=== PATIENT | male | born 1945 | race Caucasian/White ===

== ENCOUNTER 2019-03-05 08:22 | Emergency (ER) | payer OTHER ==
[2019-03-05] MEDS ORDERED: HYDROCODONE/CHLORPHEN 5 ML/OSYR ONE (08:51)
[2019-03-05] MEDS ORDERED: ACETAMINOPHEN 500 MG TAB ONE (08:51)
[2019-03-05] MEDS ORDERED: NA CHLORIDE 0.9% 1,000 ML ONE (09:56)
[2019-03-05] MEDS ORDERED: CEFTRIAXONE/SWI 1gm 1 GM/10 ML SYR ONE (09:56)
[2019-03-05 10:22] LABS: Absolute Lymphocytes (CBC) 10.7 K/uL (0.7-4.9); Basophils % 0.4 % (0-1.3); Hematocrit 31.7 % (39.6-49.0); Lymphocytes % 86.9 % (15.3-44.8); MPV 7.1 fL (7.6-11.3)
[2019-03-05 10:35] LABS: Potassium 3.6 mmol/L (3.5-5.1)
--- NOTE | 2019-03-05 10:51 | RAD REPORT ---
EXAM DESCRIPTION: RAD - Chest Pa And Lat (2 Views) - 03/05/2019 9:26 am CLINICAL HISTORY: Cough;Fever Chest pain. COMPARISON: No comparisons FINDINGS: Emphysematous changes are present throughout the lungs. No focal infiltrate is seen. The h eart is normal in size. No displaced fractures. IMPRESSION: COPD.
--- NOTE | 2019-03-05 11:34 | ER ---
Nurse's Notes [facility] Name: Yao Francisco Age: 73 yrs Sex: Male : 1945 Arrival Date: 03/05/2019 Time: 08:28 Bed 19 Private MD: Diagnosis: Fever presenting with conditions classified elsewhere;Viral infection, unspecified Presentation: 03/05 08:43 Presenting complaint: Patient states: body aches and fever since Thursday, called out of em state doctor and prescribed amoxicillin for sore throat, also reports "little cough". Transition of care: patient was not received from another setting of care. Onset of symptoms was March 01, 2019. Risk Assessment: Do you want to hurt yourself or someone else? Patient reports no desire to harm self or others. Initial Sepsis Screen: Does the patient meet any 2 criteria? Temp <36.0*C (96.8*F)) or > 38.3*C (100.9*F). HR > 90 bpm. Yes Does the patient have a suspected source of infection? Yes: Productive cough/pneumonia. Care prior to arrival: None. 08:43 Method Of Arrival: Ambulatory em 08:50 Acuity: TOMAS 3 iw Historical: - Allergies: 08:48 Allopurinol; em - Home Meds: 08:48 Potassium Chloride Oral [Active]; omeprazole Oral [Active]; Simvastatin Oral [Active]; em meloxicam oral oral [Active]; losartan oral oral [Active]; - PMHx: 08:48 Kidney stones; Hyperlipidemia; Hypertension; Sleep Apnea; vitamin d deficiency; em 10:31 Chronic Lymphocytic Leukemia; em - Immunization history:: Adult Immunizations up to date. - Social history:: Smoking status: Patient/guardian denies using tobacco. - Ebola Screening: : Patient negative for fever greater than or equal to 101.5 degrees Fahrenheit, and additional compatible Ebola Virus Disease symptoms Patient denies exposure to infectious person Patient denies travel to an Ebola-affected area in the 21 days before illness onset No symptoms or risks identified at this time. Screenin:44 Abuse screen: Denies threats or abuse. Nutritional screening: No deficits noted. em Tuberculosis screening: No symptoms or risk factors identified. Fall Risk None identified. Assessment: 08:44 General: Appears in no apparent distress. uncomfortable, Behavior is calm, cooperative, em Reports chills for >3 days, feeling ill for 2-3 days. Pain: Complains of pain in "all over" Pain currently is 5 out of 10 on a pain scale. Pain began Thursday. Neuro: Level of Consciousness is awake, alert, obeys commands, Oriented to person, place, time, situation. Cardiovascular: Heart tones S1 S2 present Capillary refill < 3 seconds Patient's skin is warm and dry. Respiratory: Reports cough that is productive, Airway is patent Respiratory effort is even, unlabored, Respiratory pattern is regular, symmetrical, Breath sounds are clear bilaterally. GI: Abdomen is flat, Patient currently denies nausea, vomiting. EENT: Nares are clear Oral mucosa is moist. Throat is reddened has enlarged tonsils. Derm: Skin is intact, is healthy with good turgor, Skin is pink, warm \\T\\ dry. Musculoskeletal: Capillary refill < 3 seconds, Range of motion: intact in all extremities. 09:53 Reassessment: Patient appears in no apparent distress at this time. Patient and/or em family updated on plan of care and expected duration. Pain level reassessed. Patient is alert, oriented x 3, equal unlabored respirations, skin warm/dry/pink. Patient denies pain at this time. Patient states feeling better. Patient states symptoms have improved. 11:30 Reassessment: Patient appears in no apparent distress at this time. Patient and/or em family updated on plan of care and expected duration. Pain level reassessed. Patient is alert, oriented x 3, equal unlabored respirations, skin warm/dry/pink. Patient denies pain at this time. Patient states feeling better. Patient states symptoms have improved. Vital Signs: 08:48 BP 113 / 75; Pulse 95; Resp 22; Temp 102.9(O); Pulse Ox 95% on R/A; Weight 117.93 kg; em Height 5 ft. 9 in. (175.26 cm); Pain 5/10; 09:52 BP 108 / 66; Pulse 89; Resp 20; Temp 101.0(O); Pulse Ox 94% on R/A; Pain 0/10; em 11:30 BP 110 / 59; Pulse 74; Resp 18; Pulse Ox 99% on R/A; Pain 0/10; em 11:34 Temp 99.4(O); em 08:48 Body Mass Index 38.39 (117.93 kg, 175.26 cm) em ED Course: 08:28 Patient arrived in ED. mr 08:30 Sonido AppiahSANDRINE wyatt is Primary Nurse. em 08:32 Hayley Milian FNP-C is PHCP. snw 08:32 Frank Ruiz MD is Attending Physician. snw 08:44 Patient has correct armband on for positive identification. Placed in gown. Bed in low em position. Call light in reach. Adult w/ patient. Pulse ox on. NIBP on. 08:48 Arm band placed on. em 08:50 Triage completed. iw 09:10 Flu and/or RSV swab sent to lab. em 09:25 Chest Pa And Lat (2 Views) XRAY In Process Unspecified. EDMS 10:10 Inserted saline lock: 20 gauge in right forearm, using aseptic technique. Blood em collected. 10:10 Initial lab(s) drawn, by me, sent to lab. First set of blood cultures drawn by me. em 11:42 No provider procedures requiring assistance completed. IV discontinued, intact, em bleeding controlled, No redness/swelling at site. Pressure dressing applied. Administered Medications: 08:56 Drug: Tussionex Pennkinetic ER 5 ml Route: PO; em 09:53 Follow up: Response: No adverse reaction; Marked relief of symptoms; Pain is decreased em 08:57 Drug: Tylenol 1000 mg Route: PO; em 09:53 Follow up: Response: No adverse reaction; Temperature is decreased em 10:14 Drug: NS 0.9% 1000 ml Route: IV; Rate: 75 ml/hr; Site: right forearm; em 11:42 Follow up: IV Status: Order to discontinue infusion; IV Intake: 750ml em 10:25 Drug: Rocephin 1 grams Route: IV; Rate: calculated rate; Site: right forearm; iw 11:27 Follow up: Response: No adverse reaction; IV Status: Completed infusion; IV Intake: 10mlem Intake: 11:27 IV: 10ml; Total: 10ml. em 11:42 IV: 750ml; Total: 760ml. em Outcome: 11:34 Discharge ordered by . snw 11:42 Discharged to home ambulatory, with family. em 11:42 Condition: good 11:42 Discharge instructions given to patient, Instructed on discharge instructions, follow up and referral plans. Demonstrated understanding of instructions, follow-up care. 11:43 Patient left the ED. em Signatures: Dispatcher [employer] Hayley Chawla, SOCIAL ECONOMIST-C SOCIAL ECONOMIST-Csnw Savita Cervantes mr Appiah, [place], ORTHOPAEDIC SURGEON ORTHOPAEDIC SURGEON Kym New, RN RN iw
--- NOTE | 2019-03-05 11:35 | EDPHYS ---
Physician Documentation [facility] Name: Yao Francisco Age: 73 yrs Sex: Male : 1945 Arrival Date: 03/05/2019 Time: 08:28 Bed 19 Private MD: ED Physician Frank Ruiz HPI: 03/05 09:21 This 73 yrs old Male presents to ER via Ambulatory with complaints of Sore snw Throat, Fever. 09:21 The patient presents with sore throat. The patient describes throat pain as raw, snw scratchy. Onset: The symptoms/episode began/occurred suddenly, 1 week(s) ago. Severity of symptoms: At their worst the symptoms were moderate, severe. Associated signs and symptoms: Pertinent positives: chills, fever, flu-like symptoms. The patient has not experienced similar symptoms in the past. pt rec'd flu shot on Feb 21, on the 7th of this month called PCP for sore throat. Pt started Amoxil on 02/28/19. Pt and on vacation and pt states he is not feeling any better post abx. Historical: - Allergies: 08:48 Allopurinol; em - Home Meds: 08:48 Potassium Chloride Oral [Active]; omeprazole Oral [Active]; Simvastatin Oral [Active]; em meloxicam oral oral [Active]; losartan oral oral [Active]; - PMHx: 08:48 Kidney stones; Hyperlipidemia; Hypertension; Sleep Apnea; vitamin d deficiency; em 10:31 Chronic Lymphocytic Leukemia; em - Immunization history:: Adult Immunizations up to date. - Social history:: Smoking status: Patient/guardian denies using tobacco. - Ebola Screening: : Patient negative for fever greater than or equal to 101.5 degrees Fahrenheit, and additional compatible Ebola Virus Disease symptoms Patient denies exposure to infectious person Patient denies travel to an Ebola-affected area in the 21 days before illness onset No symptoms or risks identified at this time. ROS: 09:18 Eyes: Negative for injury, pain, redness, and discharge. snw 09:18 Neck: Negative for injury, pain, and swelling, Cardiovascular: Negative for chest pain, palpitations, and edema. 09:18 Abdomen/GI: Negative for abdominal pain, nausea, vomiting, diarrhea, and constipation, Back: Negative for injury and pain, : Negative for injury, bleeding, discharge, and swelling, MS/Extremity: Negative for injury and deformity, Skin: Negative for injury, rash, and discoloration, Neuro: Negative for headache, weakness, numbness, tingling, and seizure. 09:18 Constitutional: Positive for body aches, chills, fever, malaise, poor PO intake. 09:18 ENT: Positive for sore throat. 09:18 Respiratory: Positive for cough, mild, nonproductive. Exam: 09:18 Eyes: Pupils equal round and reactive to light, extra-ocular motions intact. Lids and snw lashes normal. Conjunctiva and sclera are non-icteric and not injected. Cornea within normal limits. Periorbital areas with no swelling, redness, or edema. 09:18 Neck: Trachea midline, no thyromegaly or masses palpated, and no cervical lymphadenopathy. Supple, full range of motion without nuchal rigidity, or vertebral point tenderness. No Meningismus. Chest/axilla: Normal chest wall appearance and motion. Nontender with no deformity. No lesions are appreciated. Cardiovascular: Regular rate and rhythm with a normal S1 and S2. No gallops, murmurs, or rubs. Normal PMI, no JVD. No pulse deficits. Respiratory: Lungs have equal breath sounds bilaterally, clear to auscultation and percussion. No rales, rhonchi or wheezes noted. No increased work of breathing, no retractions or nasal flaring. Abdomen/GI: Soft, non-tender, with normal bowel sounds. No distension or tympany. No guarding or rebound. No evidence of tenderness throughout. Back: No spinal tenderness. No costovertebral tenderness. Full range of motion. Skin: Warm, dry with normal turgor. Normal color with no rashes, no lesions, and no evidence of cellulitis. MS/ Extremity: Pulses equal, no cyanosis. Neurovascular intact. Full, normal range of motion. Neuro: Awake and alert, GCS 15, oriented to person, place, time, and situation. Cranial nerves II-XII grossly intact. Motor strength 5/5 in all extremities. Sensory grossly intact. Cerebellar exam normal. Normal gait. Psych: Awake, alert, with orientation to person, place and time. Behavior, mood, and affect are within normal limits. 09:18 Constitutional: The patient appears alert, awake. 09:18 Head/face: Noted is ecchymosis, that is mild, of the right eye, of the pt states it is from c-pap machine. 09:18 ENT: TM's: hearing aides bilat, Nose: Nasal mucosa: edematous, Mouth: is normal, Posterior pharynx: erythema, that is mild, exudate, that is moderate, Voice: is hoarse. Vital Signs: 08:48 BP 113 / 75; Pulse 95; Resp 22; Temp 102.9(O); Pulse Ox 95% on R/A; Weight 117.93 kg; em Height 5 ft. 9 in. (175.26 cm); Pain 5/10; 09:52 BP 108 / 66; Pulse 89; Resp 20; Temp 101.0(O); Pulse Ox 94% on R/A; Pain 0/10; em 11:30 BP 110 / 59; Pulse 74; Resp 18; Pulse Ox 99% on R/A; Pain 0/10; em 11:34 Temp 99.4(O); em 08:48 Body Mass Index 38.39 (117.93 kg, 175.26 cm) em MDM: 08:39 Patient medically screened. snw 11:35 Data reviewed: vital signs, nurses notes. Data interpreted: Pulse oximetry: on room air snw is 99 %. Counseling: I had a detailed discussion with the patient and/or guardian regarding: the historical points, exam findings, and any diagnostic results supporting the discharge/admit diagnosis, lab results, radiology results, the need for outpatient follow up, to return to the emergency department if symptoms worsen or persist or if there are any questions or concerns that arise at home. Special discussion: Based on the history and exam findings, there is no indication for further emergent testing or inpatient evaluation. I discussed with the patient/guardian the need to see the primary care provider for further evaluation of the symptoms. 03/05 08:39 Order name: Flu; Complete Time: 09:47 snw 03/05 09:50 Order name: CBC with Diff snw 03/05 09:50 Order name: Chem 7; Complete Time: 10:49 snw 03/05 09:50 Order name: Blood Culture Adult (2) snw 03/05 10:15 Order name: Lactate; Complete Time: 10:49 snw 03/05 08:49 Order name: Chest Pa And Lat (2 Views) XRAY; Complete Time: 10:56 snw 03/05 10:43 Order name: Misc. Order: ns bolus x 750ml; Complete Time: 10:45 em Administered Medications: 08:56 Drug: Tussionex Pennkinetic ER 5 ml Route: PO; em 09:53 Follow up: Response: No adverse reaction; Marked relief of symptoms; Pain is decreased em 08:57 Drug: Tylenol 1000 mg Route: PO; em 09:53 Follow up: Response: No adverse reaction; Temperature is decreased em 10:14 Drug: NS 0.9% 1000 ml Route: IV; Rate: 75 ml/hr; Site: right forearm; em 11:42 Follow up: IV Status: Order to discontinue infusion; IV Intake: 750ml em 10:25 Drug: Rocephin 1 grams Route: IV; Rate: calculated rate; Site: right forearm; iw 11:27 Follow up: Response: No adverse reaction; IV Status: Completed infusion; IV Intake: 10mlem Disposition: 15:09 Co-signature as Attending Physician, Frank Ruiz MD I agree with the assessment and kdr plan of care. Disposition: 03/05/19 11:34 Discharged to Home. Impression: Fever presenting with conditions classified elsewhere, Viral infection, unspecified. - Condition is Stable. - Discharge Instructions: Dehydration, Elderly, Viral Respiratory Infection, Fever, Adult, [id number], Rehydration, Elderly. - Medication Reconciliation Form, Thank You Letter, Antibiotic Education, Prescription Opioid Use form. - Follow up: Emergency Department; When: As needed; Reason: Worsening of condition. Follow up: Private Physician; When: 2 - 3 days; Reason: Recheck today's complaints, Continuance of care, Re-evaluation by your physician. Signatures: Dispatcher [employer] Frank Denny MD MD kdr Therrien, Shelly, SURYA-C DISTRIBUTOR OPERATOR-Ellaw Landen Appiah, SCRUM PRODUCT OWNER SCRUM PRODUCT OWNER em Kym Lagos RN RN iw Corrections: (The following items were deleted from the chart) 11:43 11:34 03/05/2019 11:34 Discharged to Home. Impression: Fever presenting with conditions em classified elsewhere; Viral infection, unspecified. Condition is Stable. Forms are Medication Reconciliation Form, Thank You Letter, Antibiotic Education, Prescription Opioid Use. Follow up: Emergency Department; When: As needed; Reason: Worsening of condition. Follow up: Private Physician; When: 2 - 3 days; Reason: Recheck today's complaints, Continuance of care, Re-evaluation by your physician. [email or web address]
[2019-03-05 12:00] VITALS: BP 110/59; O2SAT 99
[2019-03-05 12:01] VITALS: TEMP 99.4
[2019-03-05 13:00] LABS: Anisocytosis 1+; Blood Morphology Comment NOTED (NOT SEEN); Platelet Estimate DECR; Teardrop Cell 1+
== END 2019-03-05 11:43 | disposition home or self-care (01) ==
LOC: ER 08:22
DX: B34.9 Viral infection, unspecified (principal); R05 Cough; I10 Essential (primary) hypertension; E78.5 Hyperlipidemia, unspecified; Z85.6 Personal history of leukemia; Z88.8 Allergy status to other drugs, medicaments and biological substances
CPT/HCPCS: 96365; 87040 ×2; 85025; 80048; 36415; 83605; 87804 ×2; 71046; 99284; J0696; J7030